=== PATIENT | female | born 1980 | race American Indian/Alaskan Native ===

== ENCOUNTER 2020-01-14 13:19 | Emergency (ER) | payer SELFPAY ==
[2020-01-14 13:58] VITALS: BP 116/72
[2020-01-14] MEDS ORDERED: KETOROLAC 30 MG/1 ML INJ IM ONE (16:38)
[2020-01-14] MEDS ORDERED: dexAMETHasone 4 MG/ML VIAL IM ONE (16:38)
--- NOTE | 2020-01-14 17:17 | Emergency Department Report ---
ED Back Pain/Injury HPI - General Chief Complaint: Extremity Injury, Lower Stated Complaint: RT ANKLE/BACK PAIN Time Seen by Provider: 01/14/20 15:46 Source: patient Limitations: No Limitations - History of Present Illness Initial Comments: Patient is a 39-year-old female presents emergency room with complaints of lower back pain that began 2 days ago. 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 She denies any fall or injury. She denies any fever, vomiting, urinary symptoms, numbness, weakness, bowel or bladder incontinence. She states that she is also been having some right ankle pain for a few days but denies any fall or injury, she states that she was diagnosed with arthritis. She denies any other past medical history. No allergies to medications. Last menstrual cycle 2 weeks ago. - Related Data Previous Rx's Medication Instructions Recorded Last Taken Type Menthol/Camphor [[place] 1 applicatio TP BID #8 oint...g. 01/14/20 Unknown Rx Ointment] Naproxen [EC-Naprosyn] 500 mg PO BID PRN #14 tablet. 01/14/20 Unknown Rx methOCARBAMOL [Robaxin TAB] 500 mg PO BID PRN #14 tab 01/14/20 Unknown Rx Allergies Allergy/AdvReac Type Severity Reaction Status Date / Time No Known Allergies Allergy Unverified 01/14/20 13:58 ED Review of Systems ROS: Stated complaint: RT ANKLE/BACK PAIN Other details as noted in HPI Comment: All other systems reviewed and negative ED Past Medical Hx - Past Medical History Previous Medical History?: No - Surgical History Past Surgical History?: Yes Hx Appendectomy: Yes Additional Surgical History: x 4 - Social History Smoking Status: Current Every Day Smoker Substance Use Type: Alcohol - Medications Home Medications: Home Medications Medication Instructions Recorded Confirmed Last Taken Type Menthol/Camphor [[place] 1 applicatio TP BID #8 oint...g. 01/14/20 Unknown Rx Ointment] Naproxen [EC-Naprosyn] 500 mg PO BID PRN #14 tablet. 01/14/20 Unknown Rx methOCARBAMOL [Robaxin TAB] 500 mg PO BID PRN #14 tab 01/14/20 Unknown Rx ED Physical Exam - General Limitations: No Limitations General appearance: alert, in no apparent distress - Head Head exam: Present: atraumatic, normocephalic - Eye Eye exam: Present: normal appearance - ENT ENT exam: Present: mucous membranes moist - Neck Neck exam: Present: normal inspection, full ROM. Absent: tenderness - Respiratory Respiratory exam: Present: normal lung sounds bilaterally. Absent: respiratory distress, wheezes, rales, rhonchi, stridor, chest wall tenderness, accessory muscle use, decreased breath sounds, prolonged expiratory - Cardiovascular Cardiovascular Exam: Present: regular rate, normal rhythm, normal heart sounds. Absent: systolic murmur, diastolic murmur, rubs, gallop - Extremities Exam Extremities exam: Present: other (mild right medial ankle ttp, no edema, no erythema, no increased warmth, no skin changes, FROM of the right ankle, foot, and toes, neurovascularly intact) - Back Exam Back exam: Present: normal inspection, full ROM, paraspinal tenderness (bilateral paraspinal lumbar muscular ttp, no midline C-spine, T-spine or L- spine ttp, no step offs, no deformities). Absent: vertebral tenderness - Neurological Exam Neurological exam: Present: alert, oriented X3, CN II-XII intact, normal gait. Absent: motor sensory deficit - Psychiatric Psychiatric exam: Present: normal affect, normal mood - Skin Skin exam: Present: warm, dry, intact ED Course Vital Signs 01/14/20 13:52 Temperature 97.9 F Pulse Rate 99 H Respiratory 18 Rate Blood Pressure 116/72 O2 Sat by Pulse 100 Oximetry ED Medical Decision Making - Medical Decision Making Patient is a 39-year-old female presents emergency room with complaints of lower back pain that began 2 days ago. 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 She denies any fall or injury. She denies any fever, vomiting, urinary symptoms, numbness, weakness, bowel or bladder incontinence. She states that she is also been having some right ankle pain for a few days but denies any fall or injury, she states that she was diagnosed with arthritis. She denies any other past medical history. No allergies to medications. Last menstrual cycle 2 weeks ago. VSS. on exam: bilateral paraspinal lumbar muscular ttp, no midline C-spine, T-spine or L-spine ttp, no step offs, no deformities, mild right medial ankle ttp, no edema, no erythema, no increased warmth, no skin changes, FROM of the right ankle, foot, and toes, neurovascularly intact. Patient given dexamethasone and Toradol IM while in the emergency department and symptoms improved and she was feeling better and ready to go home. Symptoms likely related to low back strain as patient does heavy lifting at her job. She has no red flag warning signs of back pain, no trauma, no unexplained weight loss, no neuro deficits, age is not greater than 50, no fever, no IV drug use, no steroid use, no history of cancer. Ankle pain could be related to arthritis versus standing on her legs all day long. She has no clinical signs of septic joint, no signs of gout, no clinical signs of DVT, she has had no injury. Patient given prescription for naproxen, Robaxin, [place] balm ointment. Advised patient to please use medication as prescribed. Do not drive, work, or operate heavy machinery while taking muscle relaxer (Robaxin). May use ice pack, heating pad, rest, Epson salt bath, elevation of the leg. May wear orthopedic inserts inside your shoes. Follow-up with a primary care doctor for reexamination. Return to emergency room for any new or worsening symptoms. - Differential Diagnosis strain, sprain, fx, dislocation, bulging disc, DDD, arthritis, sciatica Critical care attestation.: If time is entered above; I have spent that time in minutes in the direct care of this critically ill patient, excluding procedure time. ED Disposition Clinical Impression: Low back strain Qualifiers: Encounter type: initial encounter Qualified Code(s): S39.012A - Strain of muscle, fascia and tendon of lower back, initial encounter Right ankle pain Qualifiers: Chronicity: acute Qualified Code(s): M25.571 - Pain in right ankle and joints of right foot Disposition: DC-01 TO HOME OR SELFCARE Is pt being admited?: No Does the pt Need Aspirin: No Condition: Stable Instructions: Muscle Strain (ED), Arthralgia (ED) Additional Instructions: please use medication as prescribed. Do not drive, work, or operate heavy machinery while taking muscle relaxer (Robaxin). May use ice pack, heating pad, rest, Epson salt bath, elevation of the leg. May wear orthopedic inserts inside your shoes. Follow-up with a primary care doctor for reexamination. Return to emergency room for any new or worsening symptoms. Prescriptions: Naproxen [EC-Naprosyn] 500 mg PO BID PRN #14 tablet.dr PORTERN Reason: pain methOCARBAMOL [Robaxin TAB] 500 mg PO BID PRN #14 tab PRN Reason: pain Menthol/Camphor [[place] Ointment] 1 applicatio TP BID #8 oint...g. Referrals: TRISTON WELDON MD [Staff Physician] - 2-[address] [facility] [Provider Group] - 2-3 Days [facility], [LAB/CONTRACT] - 2-3 Days Time of Disposition: 17:18 Print Language: UZBEK
== END 2020-01-14 16:41 | disposition home or self-care (01) ==
LOC: ED 13:19
DX: S39.012A Strain of muscle, fascia and tendon of lower back, initial encounter (principal); M25.571 Pain in right ankle and joints of right foot; F17.200 Nicotine dependence, unspecified, uncomplicated; Z90.49 Acquired absence of other specified parts of digestive tract; Z79.899 Other long term (current) drug therapy; Z98.890 Other specified postprocedural states; X58.XXXA Exposure to other specified factors, initial encounter; Y93.89 Activity, other specified; Y92.89 Other specified places as the place of occurrence of the external cause; Y99.8 Other external cause status
CPT/HCPCS: 96372; 99282; J1100; J1885

== ENCOUNTER 2020-02-17 15:06 | Emergency (ER) | payer OTHER ==
[2020-02-17 15:11] VITALS: BP 112/75
--- NOTE | 2020-02-17 16:11 | Emergency Department Report ---
ED General Adult HPI - General Chief complaint: Neck Pain/Injury Stated complaint: LT SHOULDER/NECK PAIN Time Seen by Provider: 02/17/20 15:36 Source: patient Mode of arrival: Ambulatory Limitations: No Limitations - History of Present Illness Initial comments: Patient is a 39-year-old female presents emergency room with complaints of left- sided neck pain and left-sided shoulder pain that began 2 to 3 days ago. 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 She denies any fall or injury. She denies any numbness, weakness, bowel or bladder incontinence, headache, nausea, vomiting, diarrhea, fever, vision changes, CP, SOB. No past medical history. No allergies to medications. she is requesting an excuse for work. - Related Data Previous Rx's Medication Instructions Recorded Last Taken Type Menthol/Camphor [[place] 1 applicatio TP BID #8 oint...g. 01/14/20 Unknown Rx Ointment] Naproxen [EC-Naprosyn] 500 mg PO BID PRN #14 tablet. 01/14/20 Unknown Rx methOCARBAMOL [Robaxin TAB] 500 mg PO BID PRN #14 tab 01/14/20 Unknown Rx Menthol/Camphor [[place] 1 applicatio TP BID #8 oint...g. 02/17/20 Unknown Rx Ointment] Naproxen [EC-Naproxen] 375 mg PO BID PRN #14 tablet. 02/17/20 Unknown Rx methOCARBAMOL [Robaxin TAB] 500 mg PO BID PRN #14 tab 02/17/20 Unknown Rx Allergies Allergy/AdvReac Type Severity Reaction Status Date / Time No Known Allergies Allergy Unverified 01/14/20 13:58 ED Review of Systems ROS: Stated complaint: LT SHOULDER/NECK PAIN Other details as noted in HPI Comment: All other systems reviewed and negative ED Past Medical Hx - Past Medical History Previous Medical History?: No - Surgical History Past Surgical History?: Yes Hx Appendectomy: Yes Additional Surgical History: x 4 - Social History Smoking Status: Never Smoker Substance Use Type: None - Medications Home Medications: Home Medications Medication Instructions Recorded Confirmed Last Taken Type Menthol/Camphor [[place] 1 applicatio TP BID #8 oint...g. 01/14/20 Unknown Rx Ointment] Naproxen [EC-Naprosyn] 500 mg PO BID PRN #14 tablet. 01/14/20 Unknown Rx methOCARBAMOL [Robaxin TAB] 500 mg PO BID PRN #14 tab 01/14/20 Unknown Rx Menthol/Camphor [[place] 1 applicatio TP BID #8 oint...g. 02/17/20 Unknown Rx Ointment] Naproxen [EC-Naproxen] 375 mg PO BID PRN #14 tablet. 02/17/20 Unknown Rx methOCARBAMOL [Robaxin TAB] 500 mg PO BID PRN #14 tab 02/17/20 Unknown Rx ED Physical Exam - General Limitations: No Limitations General appearance: alert, in no apparent distress - Head Head exam: Present: atraumatic, normocephalic - Eye Eye exam: Present: normal appearance - ENT ENT exam: Present: mucous membranes moist - Neck Neck exam: Present: normal inspection, full ROM. Absent: tenderness - Respiratory Respiratory exam: Present: normal lung sounds bilaterally. Absent: respiratory distress, wheezes, rales, rhonchi, stridor, chest wall tenderness, accessory muscle use, decreased breath sounds, prolonged expiratory - Cardiovascular Cardiovascular Exam: Present: regular rate, normal rhythm, normal heart sounds. Absent: systolic murmur, diastolic murmur, rubs, gallop - Extremities Exam Extremities exam: Present: other (ttp to the left trapezius muscle, no deformity, no crepitus, no ecchymosis, no bony ttp of the LUE, no sulcus sign, no clavicular ttp, clavicles are equal, neurovascularly intact) - Back Exam Back exam: Present: normal inspection, full ROM. Absent: paraspinal tenderness, vertebral tenderness - Neurological Exam Neurological exam: Present: alert, oriented X3, CN II-XII intact, normal gait. Absent: motor sensory deficit - Psychiatric Psychiatric exam: Present: normal affect, normal mood - Skin Skin exam: Present: warm, dry, intact ED Course Vital Signs 02/17/20 02/17/20 15:10 16:22 Temperature 99.1 F Pulse Rate 94 H 89 Respiratory 16 18 Rate Blood Pressure 112/75 O2 Sat by Pulse 100 99 Oximetry ED Medical Decision Making - Medical Decision Making Patient is a 39-year-old female presents emergency room with complaints of left- sided neck pain and left-sided shoulder pain that began 2 to 3 days ago. 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 She denies any fall or injury. She denies any numbness, weakness, bowel or bladder incontinence, headache, nausea, vomiting, diarrhea, fever, vision changes, CP, SOB. No past medical history. No all ergies to medications. she is requesting an excuse for work. vitals are normal. on exam: ttp to the left trapezius muscle, no deformity, no crepitus, no ecchymosis, no bony ttp of the LUE, no sulcus sign, no clavicular ttp, clavicles are equal, neurovascularly intact. Examination appears consistent with mild trapezius strain likely secondary to patient's heavy lifting. She has had no trauma, she has no bony tenderness, no neuro deficits. Patient given prescription for naproxen, Robaxin, [place] balm ointment. Advised patient Please use medication as prescribed. May use ice pack, heating pad, rest, Epson salt bath. Follow-up with your primary care doctor. Return to emergency room for any new or worsening symptoms. Critical care attestation.: If time is entered above; I have spent that time in minutes in the direct care of this critically ill patient, excluding procedure time. ED Disposition Clinical Impression: Trapezius muscle strain Qualifiers: Encounter type: initial encounter Laterality: left Qualified Code(s): S46.812A - Strain of other muscles, fascia and tendons at shoulder and upper arm level, left arm, initial encounter Disposition: DC- TO HOME OR SELFCARE Is pt being admited?: No Does the pt Need Aspirin: No Condition: Stable Instructions: Muscle Strain (ED) Additional Instructions: Please use medication as prescribed. May use ice pack, heating pad, rest, Epson salt bath. Follow-up with your primary care doctor. Return to emergency room for any new or worsening symptoms. Prescriptions: Naproxen [EC-Naproxen] 375 mg PO BID PRN #14 tablet.dr GRACIA Reason: pain methOCARBAMOL [Robaxin TAB] 500 mg PO BID PRN #14 tab PRN Reason: pain Menthol/Camphor [[place] Ointment] 1 applicatio TP BID #8 oint...g. Referrals: TRISTON WELDON MD [Staff Physician] - 2-3 Days [facility] [Provider Group] - 2-3 Days Forms: Work/School Release Form(ED) Time of Disposition: 16:09 Print Language: SAUDI ARABIAN
== END 2020-02-17 16:22 | disposition home or self-care (01) ==
LOC: ED 15:06
DX: S46.812A Strain of other muscles, fascia and tendons at shoulder and upper arm level, left arm, initial encounter (principal); Z79.899 Other long term (current) drug therapy; Z90.49 Acquired absence of other specified parts of digestive tract; Z98.890 Other specified postprocedural states; X50.0XXA Overexertion from strenuous movement or load, initial encounter; Y93.89 Activity, other specified; Y92.89 Other specified places as the place of occurrence of the external cause; Y99.0 Civilian activity done for income or pay
CPT/HCPCS: 99282

== ENCOUNTER 2020-03-12 16:15 | Emergency (ER) | payer OTHER ==
[2020-03-12 16:43] VITALS: BP 126/82
[2020-03-12] MEDS ORDERED: dexAMETHasone 20 MG/5 ML VIAL IV ONE (17:27)
[2020-03-12] MEDS ORDERED: NAPROXEN 500 MG TAB PO ONE (17:27)
--- NOTE | 2020-03-12 17:29 | XRay Report ---
RIGHT HAND 3 VIEW(S) INDICATION / CLINICAL INFORMATION: pain and swelling, no injury COMPARISON: None available. FINDINGS: BONES / JOINT(S): No acute fracture or subluxation. No significant arthritis. SOFT TISSUES: No significant abnormality. ADDITIONAL FINDINGS: None. IMPRESSION: No acute osseous abnormality. Signer Name: Ruddy Jolly MD Signed: 03/12/2020 5:24 PM Workstation Name: [id number]
--- NOTE | 2020-03-12 17:38 | Emergency Department Report ---
ED General Adult HPI - General Chief complaint: Extremity Injury, Upper Stated complaint: RT HAND SWOLLEN/LT SHOULDER PAIN Time Seen by Provider: 03/12/20 17:26 Source: patient Mode of arrival: Ambulatory Limitations: No Limitations - History of Present Illness Initial comments: 39-year-old -Mosoth[place] female patient presents with complaints of sudden onset of right hand pain and swelling x 3 days. She denies any trauma to the hand, fever/chills/sweats, history of diabetes, history of IV drug use, numbness/tingling/weakness in her hand, or history of gout. She rates her current pain as a 9/10 in severity and states it worsens with touch and movement. - Related Data Previous Rx's Medication Instructions Recorded Last Taken Type Menthol/Camphor [[place] 1 applicatio TP BID #8 oint...g. 01/14/20 Unknown Rx Ointment] Naproxen [EC-Naprosyn] 500 mg PO BID PRN #14 tablet. 01/14/20 Unknown Rx methOCARBAMOL [Robaxin TAB] 500 mg PO BID PRN #14 tab 01/14/20 Unknown Rx Menthol/Camphor [[place] 1 applicatio TP BID #8 oint...g. 02/17/20 Unknown Rx Ointment] Naproxen [EC-Naproxen] 375 mg PO BID PRN #14 tablet. 02/17/20 Unknown Rx methOCARBAMOL [Robaxin TAB] 500 mg PO BID PRN #14 tab 02/17/20 Unknown Rx Naproxen 500 mg PO BID PRN 7 Days #14 tablet 03/12/20 Unknown Rx Prednisone [predniSONE 10 mg 10 mg PO .TAPER #1 tab.ds.pk 03/12/20 Unknown Rx (6-Day Pack, 21 Tabs)] Allergies Allergy/AdvReac Type Severity Reaction Status Date / Time No Known Allergies Allergy Verified 03/12/20 17:30 ED Review of Systems ROS: Stated complaint: RT HAND SWOLLEN/LT SHOULDER PAIN Other details as noted in HPI Constitutional: denies: chills, diaphoresis, fever, malaise, weakness Endocrine: denies: excessive sweating Gastrointestinal: denies: nausea, vomiting Musculoskeletal: joint swelling, arthralgia Skin: denies: rash, lesions, change in color Neurological: denies: weakness, numbness, paresthesias ED Past Medical Hx - Past Medical History Previous Medical History?: No - Surgical History Hx Appendectomy: Yes Additional Surgical History: x 4 - Social History Smoking Status: Never Smoker Substance Use Type: None - Medications Home Medications: Home Medications Medication Instructions Recorded Confirmed Last Taken Type Menthol/Camphor [[place] 1 applicatio TP BID #8 oint...g. 01/14/20 Unknown Rx Ointment] Naproxen [EC-Naprosyn] 500 mg PO BID PRN #14 tablet. 01/14/20 Unknown Rx methOCARBAMOL [Robaxin TAB] 500 mg PO BID PRN #14 tab 01/14/20 Unknown Rx Menthol/Camphor [[place] 1 applicatio TP BID #8 oint...g. 02/17/20 Unknown Rx Ointment] Naproxen [EC-Naproxen] 375 mg PO BID PRN #14 tablet. 02/17/20 Unknown Rx methOCARBAMOL [Robaxin TAB] 500 mg PO BID PRN #14 tab 02/17/20 Unknown Rx Naproxen 500 mg PO BID PRN 7 Days #14 tablet 03/12/20 Unknown Rx Prednisone [predniSONE 10 mg 10 mg PO .TAPER #1 tab.ds.pk 03/12/20 Unknown Rx (6-Day Pack, 21 Tabs)] ED Physical Exam - General Limitations: No Limitations General appearance: alert, in no apparent distress - Head Head exam: Present: atraumatic, normocephalic - Eye Eye exam: Present: normal appearance. Absent: scleral icterus - Neck Neck exam: Present: normal inspection - Respiratory Respiratory exam: Absent: respiratory distress - Cardiovascular Cardiovascular Exam: Present: regular rate, normal rhythm - Extremities Exam Extremities exam: Present: other (Right wrist and lower hand tenderness to palpation noted with minimal swelling; normal perfusion and sensation and range of motion of the hand and wrist noted) - Neurological Exam Neurological exam: Present: alert, oriented X3, normal gait. Absent: motor sensory deficit - Psychiatric Psychiatric exam: Present: normal affect, normal mood - Skin Skin exam: Present: warm, dry, intact, normal color. Absent: rash, erythema ED Course Vital Signs 03/12/20 16:42 Temperature 98.3 F Pulse Rate 109 H Respiratory 18 Rate Blood Pressure 126/82 O2 Sat by Pulse 99 Oximetry ED Medical Decision Making - Lab Data Result diagrams: 03/12/20 17:32 03/12/20 17:32 Lab Results 03/12/20 03/12/20 Range/Units 17:32 17:32 WBC 8.1 (4.5-11.0) K/mm3 RBC 4.18 (3.65-5.03) M/mm3 Hgb 8.9 L (10.1-14.3) gm/dl Hct 28.4 L (30.3-42.9) % MCV 68 L (79-97) fl MCH 21 L (28-32) pg MCHC 31 (30-34) % RDW 21.8 H (13.2-15.2) % Plt Count 434 (140-440) K/mm3 Lymph % (Auto) 27.2 (13.4-35.0) % [place] % (Auto) 7.4 H (0.0-7.3) % Eos % (Auto) 3.9 (0.0-4.3) % Baso % (Auto) 0.3 (0.0-1.8) % Lymph # (Auto) 2.2 (1.2-5.4) K/mm3 [place] # (Auto) 0.6 (0.0-0.8) K/mm3 Eos # (Auto) 0.3 (0.0-0.4) K/mm3 Baso # (Auto) 0.0 (0.0-0.1) K/mm3 Seg Neutrophils % 61.2 (40.0-70.0) % Seg Neutrophils # 5.0 (1.8-7.7) K/mm3 Sodium 141 (137-145) mmol/L Potassium 3.4 L (3.6-5.0) mmol/L Chloride 105.3 (98-107) mmol/L Carbon Dioxide 25 (22-30) mmol/L Anion Gap 14 mmol/L BUN 5 L (7-17) mg/dL Creatinine 0.6 (0.6-1.2) mg/dL Estimated GFR > 60 ml/min BUN/Creatinine Ratio 8 % Glucose 91 (65-100) mg/dL Uric Acid 4.4 (3.5-7.6) mg/dL Calcium 9.1 (8.4-10.2) mg/dL Total Bilirubin 0.30 (0.1-1.2) mg/dL AST 14 (5-40) units/L ALT 7 (7-56) units/L Alkaline Phosphatase 79 (35-129) units/L Total Protein 7.6 (6.3-8.2) g/dL Albumin 3.6 L (3.9-5) g/dL Albumin/Globulin Ratio 0.9 % - Radiology Data Radiology results: report reviewed RIGHT HAND 3 VIEW(S) INDICATION / CLINICAL INFORMATION: pain and swelling, no injury COMPARISON: None available. FINDINGS: BONES / JOINT(S): No acute fracture or subluxation. No significant arthritis. SOFT TISSUES: No significant abnormality. ADDITIONAL FINDINGS: None. IMPRESSION: No acute osseous abnormality. - Medical Decision Making 39-year-old -Mos[place] female patient presents with complaints of sudden onset of right hand pain and swelling x 3 days. She denies any trauma to the hand, fever/chills/sweats, history of diabetes, history of IV drug use, numbness/tingling/weakness in her hand, or history of gout. She rates her current pain as a 9/10 in severity and states it worsens with touch and movement . No abnormalities noted on x-ray or labs. Patient is afebrile and nontachycardic on repeat vitals. Will treat for possible gout. Patient given naproxen and Decadron. She is to DC home with naproxen and prednisone Dosepak. Recommend follow-up with PCP in 3 days. She is nontoxic-appearing and stable for discharge home. Strict return precautions were discussed in detail with patient who verbalized understanding peer Critical care attestation.: If time is entered above; I have spent that time in minutes in the direct care of this critically ill patient, excluding procedure time. ED Disposition Clinical Impression: Acute pain of right wrist Disposition: DC-01 TO HOME OR SELFCARE Is pt being admited?: No Condition: Stable Instructions: Low-Purine Eating Plan Additional Instructions: gout? Gout is a form of arthritis. It can cause pain and swelling in the joints. At first, it tends to affect only 1 joint most frequently the big toe. It happens in people who have too much uric acid in the blood. Uric acid is a chemical that is produced when the body breaks down certain foods. Uric acid can form sharp needle-like crystals that build up in the joints and cause pain. Uric acid crystals can also form inside the tubes that carry urine from the kidneys to the bladder. These crystals can turn into "kidney stones" that can cause pain and problems with the flow of urine. What are the symptoms of gout? People with gout get sudden "flares" or attacks of severe pain, most often the big toe, ankle, or knee. Often the joint also turns red and swells. Usually, only 1 joint is affected, but some people have pain in more than 1 joint. Gout flares tend to happen more often during the night. The pain from gout can be extreme. The pain and swelling are worst at the beginning of a gout flare. The symptoms then get better within a few days to weeks. It is not clear how the body "turns off" a gout flare. Is there a test for gout? Yes. To test you for gout, your doctor or nurse can take a sample of fluid from the joint that is in pain. If he or she finds typical gout crystals in the fl uid, then you have gout. Even without checking fluid from a joint, the doctor or nurse might still strongly suspect gout if: ?You have had pain and swelling in 1 joint, especially the joint at the base of the big toe ?Your symptoms completely go away between flares, at least when you first start having them ?Your blood tests show high levels of uric acid How is gout treated? There are a few medicines that can reduce the pain and swelling caused by gout. When you find one that works for you, make sure to keep it on hand all the time. That way you can take it as soon you feel a flare starting. Gout medicines work best if you take them as soon as symptoms start. The medicines used to treat gout flares include: ?NSAIDs This is a large group of medicines that includes ibuprofen (sample brand names: Advil, Motrin) and indomethacin (brand name: Indocin). NSAIDs might not be safe for people with kidney or liver disease, or for people who have bleeding problems. ?Colchicine This medicine helps with gout but it can also cause diarrhea, nausea, vomiting, and stomach pain. ?Steroids Steroids can reduce swelling and pain. These steroids are not the kind that athletes take to build up muscle. Steroids can be taken as pills or as shots. Can I do anything on my own to prevent gout flares? Yes. If you are overweight, losing weight can help relieve gout. It's not clear that following a specific diet plan will help with gout symptoms. But eating a balanced diet can help improve your overall health. It can also help you lose weight, if you are overweight. In general, a healthy diet includes plenty of fruits, vegetables, whole grains, and low-fat dairy products. It's also important to drink plenty of water, and try not to get dehydrated. You should limit sugary drinks and alcohol, which can make gout flares worse. Some people with gout also have other health problems, such as heart disease, high blood pressure, kidney disease, or obesity. If you have any of these issue s, it's important to work with your doctor to manage them. This can help improve your overall health and might also help with your gout. Prescriptions: Naproxen 500 mg PO BID PRN 7 Days #14 tablet PRN Reason: pain Prednisone [predniSONE 10 mg (6-Day Pack, 21 Tabs)] 10 mg PO .TAPER #1 tab.larissa Referrals: [facility] [Provider Group] - 3-5 Days
[2020-03-12 17:54] LABS: Basophils % (Auto) 0.3 % (0.0-1.8); Eosinophils # (Auto) 0.3 K/mm3 (0.0-0.4); Eosinophils % (Auto) 3.9 % (0.0-4.3); Hematocrit 28.4 % (30.3-42.9); Hemoglobin 8.9 gm/dl (10.1-14.3); Lymphocytes # (Auto) 2.2 K/mm3 (1.2-5.4); Lymphocytes % (Auto) 27.2 % (13.4-35.0); Mean Corpuscular HGB Conc 31 % (30-34); Monocytes # (Auto) 0.6 K/mm3 (0.0-0.8); Monocytes % (Auto) 7.4 % (0.0-7.3); Platelet Count 434 K/mm3 (140-440); Red Blood Count 4.18 M/mm3 (3.65-5.03)
[2020-03-12 18:06] LABS: Mean Corpuscular Volume 68 fl (79-97); Red Cell Distribution Width 21.8 % (13.2-15.2)
[2020-03-12 18:13] LABS: Alanine Aminotransferase 7 units/L (7-56); Albumin 3.6 g/dL (3.9-5); Blood Urea Nitrogen 5 mg/dL (7-17); Calcium 9.1 mg/dL (8.4-10.2); Hemolysis Index 3; Uric Acid 4.4 mg/dL (3.5-7.6)
[2020-03-12 18:20] LABS: BUN/Creatinine Ratio 8
== END 2020-03-12 20:00 | disposition home or self-care (01) ==
LOC: ED 16:15
DX: M25.531 Pain in right wrist (principal)
CPT/HCPCS: 36415; 73130; 80053; 84550; 85025; 96374; 99284; J1100

== ENCOUNTER 2020-07-30 18:51 | Emergency (ER) | payer MEDICAID, OTHER ==
[2020-07-30 19:04] VITALS: BP 135/76
[2020-07-30] MEDS ORDERED: ALBUTEROL 2.5 MG/3 ML NEBU IH ONE (23:48)
--- NOTE | 2020-07-31 00:23 | XRay Report ---
CHEST PA AND LATERAL VIEWS INDICATION: sob. COMPARISON: None. FINDINGS: Support devices: None. Heart: Within normal limits. Lungs/Pleura: No acute pulmonary or pleural findings. IMPRESSION: 1. No acute findings. Signer Name: Rodney Mariscal MD Signed: 07/31/2020 12:18 AM Workstation Name: [id number]
[2020-07-31 00:44] LABS: Basophils % (Auto) 0.5 % (0.0-1.8); Eosinophils # (Auto) 0.1 K/mm3 (0.0-0.4); Eosinophils % (Auto) 1.1 % (0.0-4.3); Hematocrit 25.1 % (30.3-42.9); Lymphocytes # (Auto) 1.4 K/mm3 (1.2-5.4); Lymphocytes % (Auto) 17.9 % (13.4-35.0); Mean Corpuscular HGB Conc 32 % (30-34); Monocytes # (Auto) 0.7 K/mm3 (0.0-0.8); Monocytes % (Auto) 8.7 % (0.0-7.3); Platelet Count 370 K/mm3 (140-440); Red Blood Count 3.85 M/mm3 (3.65-5.03)
[2020-07-31 00:47] LABS: Mean Corpuscular Volume 65 fl (79-97); Red Cell Distribution Width 21.9 % (13.2-15.2)
[2020-07-31 00:59] LABS: Blood Urea Nitrogen 5 mg/dL (7-17); Calcium 8.6 mg/dL (8.4-10.2); Hemolysis Index 0
[2020-07-31 01:06] LABS: BUN/Creatinine Ratio 10
--- NOTE | 2020-07-31 01:44 | Emergency Department Report ---
- General Chief Complaint: Dyspnea/Respdistress Stated Complaint: SOB PUI?: Yes Time Seen by Provider: 07/30/20 23:32 Source: patient Mode of arrival: Ambulatory Limitations: No Limitations - History of Present Illness Initial Comments: 39-year-old -Micronesian female smoker who has had positive contact of the coronavirus via her child was diagnosed 1 day ago with asthma department complaining of coryza, cough, congestion, shortness of breath with mucus production.. No no diarrhea but has had a few vomiting episodes. Reports no palpitations, no headache no blurred vision Quality: aching Consistency: constant Improves With: nothing Worsens With: nothing Associated Symptoms: chills, rhinorrhea, nasal congestion, cough. denies: shortness of breath, abdominal pain, confusion, right sweats, ear pain - Related Data Previous Rx's Medication Instructions Recorded Last Taken Type Menthol/Camphor [[place] 1 applicatio TP BID #8 oint...g. 01/14/20 Unknown Rx Ointment] Naproxen [EC-Naprosyn] 500 mg PO BID PRN #14 tablet. 01/14/20 Unknown Rx methOCARBAMOL [Robaxin TAB] 500 mg PO BID PRN #14 tab 01/14/20 Unknown Rx Menthol/Camphor [[place] 1 applicatio TP BID #8 oint...g. 02/17/20 Unknown Rx Ointment] Naproxen [EC-Naproxen] 375 mg PO BID PRN #14 tablet. 02/17/20 Unknown Rx methOCARBAMOL [Robaxin TAB] 500 mg PO BID PRN #14 tab 02/17/20 Unknown Rx Acetaminophen/Codeine [Tylenol 1 tab PO Q8H PRN #8 tab 03/12/20 Unknown Rx /Codeine # 3 tab] Naproxen 500 mg PO BID PRN 7 Days #14 tablet 03/12/20 Unknown Rx Prednisone [predniSONE 10 mg 10 mg PO .TAPER #1 tab.ds.pk 03/12/20 Unknown Rx (6-Day Pack, 21 Tabs)] methOCARBAMOL [Robaxin TAB] 1,000 mg PO Q8H PRN #20 tablet 03/12/20 Unknown Rx Albuterol Mdi (or & Nicu Only) 1 puff IH Q4-6H PRN #1 inha 07/31/20 Unknown Rx [ProAir HFA Inhaler] Benzonatate [Tessalon Perles] 100 mg PO Q8HR #20 capsule 07/31/20 Unknown Rx predniSONE [Deltasone] 20 mg PO QDAY #5 tab 07/31/20 Unknown Rx Allergies Allergy/AdvReac Type Severity Reaction Status Date / Time No Known Allergies Allergy Verified 03/12/20 17:30 ED Review of Systems ROS: Stated complaint: SOB Other details as noted in HPI Comment: All other systems reviewed and negative ED Past Medical Hx - Past Medical History Previous Medical History?: No - Surgical History Past Surgical History?: Yes Hx Appendectomy: Yes Additional Surgical History: x 4 - Social History Smoking Status: Never Smoker Substance Use Type: None - Medications Home Medications: Home Medications Medication Instructions Recorded Confirmed Last Taken Type Menthol/Camphor [[place] 1 applicatio TP BID #8 oint...g. 01/14/20 Unknown Rx Ointment] Naproxen [EC-Naprosyn] 500 mg PO BID PRN #14 tablet. 01/14/20 Unknown Rx methOCARBAMOL [Robaxin TAB] 500 mg PO BID PRN #14 tab 01/14/20 Unknown Rx Menthol/Camphor [[place] 1 applicatio TP BID #8 oint...g. 02/17/20 Unknown Rx Ointment] Naproxen [EC-Naproxen] 375 mg PO BID PRN #14 tablet. 02/17/20 Unknown Rx methOCARBAMOL [Robaxin TAB] 500 mg PO BID PRN #14 tab 02/17/20 Unknown Rx Acetaminophen/Codeine [Tylenol 1 tab PO Q8H PRN #8 tab 03/12/20 Unknown Rx /Codeine # 3 tab] Naproxen 500 mg PO BID PRN 7 Days #14 tablet 03/12/20 Unknown Rx Prednisone [predniSONE 10 mg 10 mg PO .TAPER #1 tab.ds.pk 03/12/20 Unknown Rx (6-Day Pack, 21 Tabs)] methOCARBAMOL [Robaxin TAB] 1,000 mg PO Q8H PRN #20 tablet 03/12/20 Unknown Rx Albuterol Mdi (or & Nicu Only) 1 puff IH Q4-6H PRN #1 inha 07/31/20 Unknown Rx [ProAir HFA Inhaler] Benzonatate [Tessalon Perles] 100 mg PO Q8HR #20 capsule 07/31/20 Unknown Rx predniSONE [Deltasone] 20 mg PO QDAY #5 tab 07/31/20 Unknown Rx ED Physical Exam - General Limitations: No Limitations General appearance: alert, in no apparent distress - Head Head exam: Present: atraumatic, normocephalic - Eye Eye exam: Present: normal appearance, PERRL - ENT ENT exam: Present: mucous membranes moist - Neck Neck exam: Present: normal inspection - Respiratory Respiratory exam: Present: normal lung sounds bilaterally, rhonchi. Absent: respiratory distress - Cardiovascular Cardiovascular Exam: Present: regular rate, normal rhythm. Absent: systolic murmur, diastolic murmur, rubs, gallop - GI/Abdominal GI/Abdominal exam: Present: soft, normal bowel sounds - Extremities Exam Extremities exam: Present: normal inspection, full ROM, normal capillary refill - Back Exam Back exam: Present: normal inspection, full ROM - Neurological Exam Neurological exam: Present: alert, oriented X3, CN II-XII intact - Psychiatric Psychiatric exam: Present: normal affect, normal mood - Skin Skin exam: Present: warm, dry, intact, normal color. Absent: rash ED Course Vital Signs 07/30/20 19:01 Temperature 99.0 F Pulse Rate 96 H Respiratory 20 Rate Blood Pressure 135/76 [Right] O2 Sat by Pulse 100 Oximetry ED Medical Decision Making - Lab Data Result diagrams: 07/30/20 23:54 07/30/20 23:54 - Radiology Data Radiology results: report reviewed [address] [place] [id number] XRay Report Signed Patient: DAVID NEWELL MR#: [id number] : 1980 Acct:[id number] Age/Sex: 39 / F ADM Date: 07/30/20 Loc: ED Attending Dr: Ordering Physician: SPRING MARTINEZ Date of Service: 07/30/20 Procedure(s): XR chest routine 2V Accession Number(s): [id number] cc: SPRING MARTINEZ Fluoro Time In Minutes: CHEST PA AND LATERAL VIEWS INDICATION: sob. COMPARISON: None. FINDINGS: Support devices: None. Heart: Within normal limits. Lungs/Pleura: No acute pulmonary or pleural findings. IMPRESSION: 1. No acute findings. Signer Name: Rodney Mariscal MD Signed: 07/31/2020 12:18 AM Workstation Name: [id number] Transcribed By: MONTEZ Dictated By: Rodney Mariscal MD Electronically Authenticated By: Rodney Mariscal MD Signed Date/Time: 07/31/2017 DD/ TD/TT: Print - Medical Decision Making This patient presents with acute cough, most consistent with bronchitis. Differential diagnosis includes bronchitis, coronavirus,. Presentation not consistent with acute bacterial pneumonia, influenza, asthma, transient airway hyperresponsiveness. Presentation not consistent with chronic causes of cough (including GERD, asthma, postnasal discharge, medication side effect, CHF, lung cancer or mass). This patient presents to the emergency department with fever and lower respiratory symptoms concerning for viral syndrome including flu and COVID-19. Patient has suspicion and is for COVID-19 infection. Differential diagnosis includes other viral causes of lower respiratory symptoms, pneumonia, asthma, bronchitis. Patient is well-appearing with acceptable vitals, lacks comorbidities admission and a reassuring physical examination and is safe to be discharged home nasal swab for COVID testing is recommended. Provide strict return precautions and instructions on self isolation/quarantine and anticipatory guidance. Normal CXR Plan: , supportive care, reassess Critical care attestation.: If time is entered above; I have spent that time in minutes in the direct care of this critically ill patient, excluding procedure time. ED Disposition Clinical Impression: Cough, URI (upper respiratory infection), The administrative codes within the [employer] content you are accessing may have as of 07/18/2020. Please contact your IT Dept/Help Desk and request the latest Regulatory release be installed. IT Dept/Help Desk- Please refer to our FAQ page ([email or web address]_[email or web address]) or contact [employer] Customer Support at [email or web address], Bronchitis Disposition: DC-01 TO HOME OR SELFCARE Is pt being admited?: No Does the pt Need Aspirin: No Condition: Stable Instructions: Cool Mist Vaporizer, Viral Respiratory Infection, [id number], How to Use a Metered Dose Inhaler, How to Use a Dry Powder Inhaler, [id number], Chronic Bronchitis (ED) Additional Instructions: Please follow-up with your doctor to receive COVID-19 testing Prescriptions: predniSONE [Deltasone] 20 mg PO QDAY #5 tab Albuterol Mdi (or & Nicu Only) [ProAir HFA Inhaler] 1 puff IH Q4-6H PRN #1 inha PRN Reason: Cough Benzonatate [Tessalon Perles] 100 mg PO Q8HR #20 capsule Referrals: RAFAEL SEAMAN MD [Primary Care Provider] - 3-5 Days [facility] [Provider Group] - 3-5 Days
== END 2020-07-31 02:41 | disposition home or self-care (01) ==
LOC: ED 18:51
DX: J06.9 Acute upper respiratory infection, unspecified (principal); R05 Cough; Z79.899 Other long term (current) drug therapy; Z90.49 Acquired absence of other specified parts of digestive tract; Z98.890 Other specified postprocedural states
CPT/HCPCS: 36415; 71046; 80048; 84703; 85025; 94640

== ENCOUNTER 2021-03-30 17:01 | Emergency (ER) | payer MEDICAID ==
[2021-03-30 17:10] VITALS: BP 112/74
--- NOTE | 2021-03-30 20:31 | Emergency Department Report ---
ED ENT HPI - General Chief complaint: Dental/Oral Stated complaint: RIGHT SIDE MOUTH PAIN Time Seen by Provider: 03/30/21 20:03 Source: patient Mode of arrival: Ambulatory Limitations: No Limitations - History of Present Illness Initial comments: Female presents to the ER today with complaints of dental pain to her right upper jaw. She states that she has a bad tooth, and she has been having pain off and on to the area for few months but she states that got worse in the past 2 days with associated swelling. She states that she does have Medicaid, and she does have a dentist, Medicaid will not cover portion of the visit and currently financially she is unable to cover the second portion. She reports no drooling, trismus, difficulty swallowing or difficulty breathing. Patient also complains of flareup of her eczema to her bilateral forearms with associated itching. MD complaint: tooth pain -: Gradual - Related Data Previous Rx's Medication Instructions Recorded Last Taken Type Menthol/Camphor [Maria Stein [place] 1 applicatio TP BID #8 oint...g. 01/14/20 Unknown Rx Ointment] methOCARBAMOL [Robaxin TAB] 500 mg PO BID PRN #14 tab 01/14/20 Unknown Rx Menthol/Camphor [Maria Stein [place] 1 applicatio TP BID #8 oint...g. 02/17/20 Unknown Rx Ointment] methOCARBAMOL [Robaxin TAB] 500 mg PO BID PRN #14 tab 02/17/20 Unknown Rx methOCARBAMOL [Robaxin TAB] 1,000 mg PO Q8H PRN #20 tablet 03/12/20 Unknown Rx Albuterol Mdi (or & Nicu Only) 1 puff IH Q4-6H PRN #1 inha 07/31/20 Unknown Rx [ProAir HFA Inhaler] Benzonatate [Tessalon Perles] 100 mg PO Q8HR #20 capsule 07/31/20 Unknown Rx Acetaminophen/Codeine [Tylenol 1 tab PO Q8H PRN #10 tab 03/30/21 Unknown Rx /Codeine # 3 tab] Hydrocortisone 1% [Hydrocortisone 1 applicatio TP TID #30 gram 03/30/21 Unknown Rx 1% CREAM] Ibuprofen [Motrin] 600 mg PO Q8H PRN #30 tablet 03/30/21 Unknown Rx Allergies Allergy/AdvReac Type Severity Reaction Status Date / Time No Known Allergies Allergy Verified 03/12/20 17:30 ED Dental HPI - General Chief complaint: Dental/Oral Stated complaint: RIGHT SIDE MOUTH PAIN Time Seen by Provider: 03/30/21 20:03 Source: patient Mode of arrival: Ambulatory Limitations: No Limitations - Related Data Previous Rx's Medication Instructions Recorded Last Taken Type Menthol/Camphor [Maria Stein [place] 1 applicatio TP BID #8 oint...g. 01/14/20 Unknown Rx Ointment] methOCARBAMOL [Robaxin TAB] 500 mg PO BID PRN #14 tab 01/14/20 Unknown Rx Menthol/Camphor [Maria Stein [place] 1 applicatio TP BID #8 oint...g. 02/17/20 Unknown Rx Ointment] methOCARBAMOL [Robaxin TAB] 500 mg PO BID PRN #14 tab 02/17/20 Unknown Rx methOCARBAMOL [Robaxin TAB] 1,000 mg PO Q8H PRN #20 tablet 03/12/20 Unknown Rx Albuterol Mdi (or & Nicu Only) 1 puff IH Q4-6H PRN #1 inha 07/31/20 Unknown Rx [ProAir HFA Inhaler] Benzonatate [Tessalon Perles] 100 mg PO Q8HR #20 capsule 07/31/20 Unknown Rx Acetaminophen/Codeine [Tylenol 1 tab PO Q8H PRN #10 tab 03/30/21 Unknown Rx /Codeine # 3 tab] Hydrocortisone 1% [Hydrocortisone 1 applicatio TP TID #30 gram 03/30/21 Unknown Rx 1% CREAM] Ibuprofen [Motrin] 600 mg PO Q8H PRN #30 tablet 03/30/21 Unknown Rx Allergies Allergy/AdvReac Type Severity Reaction Status Date / Time No Known Allergies Allergy Verified 03/12/20 17:30 ED Review of Systems ROS: Stated complaint: RIGHT SIDE MOUTH PAIN Other details as noted in HPI Comment: All other systems reviewed and negative Constitutional: denies: chills, fever Eyes: denies: eye pain, eye discharge, vision change ENT: dental pain. denies: ear pain, throat pain, hearing loss, epistaxis, marly estion Respiratory: denies: cough, shortness of breath, SOB with exertion, SOB at rest, wheezing Cardiovascular: denies: chest pain, palpitations Gastrointestinal: denies: abdominal pain, nausea, diarrhea, constipation, hemat emesis, melena, hematochezia Genitourinary: denies: urgency, dysuria, frequency, hematuria, discharge Skin: rash, pruritus Neurological: denies: headache, weakness, paresthesias, confusion, abnormal gait, vertigo Psychiatric: denies: anxiety, depression, auditory hallucinations, visual hallucinations, homicidal thoughts, suicidal thoughts Hematological/Lymphatic: denies: easy bleeding, easy bruising, swollen glands ED Past Medical Hx - Past Medical History Previous Medical History?: No - Surgical History Past Surgical History?: Yes Hx Appendectomy: Yes Additional Surgical History: x 4 - Social History Smoking Status: Never Smoker Substance Use Type: None - Medications Home Medications: Home Medications Medication Instructions Recorded Confirmed Last Taken Type Menthol/Camphor [Maria Stein [place] 1 applicatio TP BID #8 oint...g. 01/14/20 Unknown Rx Ointment] methOCARBAMOL [Robaxin TAB] 500 mg PO BID PRN #14 tab 01/14/20 Unknown Rx Menthol/Camphor [Maria Stein [place] 1 applicatio TP BID #8 oint...g. 02/17/20 Unknown Rx Ointment] methOCARBAMOL [Robaxin TAB] 500 mg PO BID PRN #14 tab 02/17/20 Unknown Rx methOCARBAMOL [Robaxin TAB] 1,000 mg PO Q8H PRN #20 tablet 03/12/20 Unknown Rx Albuterol Mdi (or & Nicu Only) 1 puff IH Q4-6H PRN #1 inha 07/31/20 Unknown Rx [ProAir HFA Inhaler] Benzonatate [Tessalon Perles] 100 mg PO Q8HR #20 capsule 07/31/20 Unknown Rx Acetaminophen/Codeine [Tylenol 1 tab PO Q8H PRN #10 tab 03/30/21 Unknown Rx /Codeine # 3 tab] Hydrocortisone 1% [Hydrocortisone 1 applicatio TP TID #30 gram 03/30/21 Unknown Rx 1% CREAM] Ibuprofen [Motrin] 600 mg PO Q8H PRN #30 tablet 03/30/21 Unknown Rx ED Physical Exam - General Limitations: No Limitations General appearance: alert, in no apparent distress - Head Head exam: Present: atraumatic, normocephalic, normal inspection - Eye Eye exam: Present: normal appearance, PERRL, EOMI Pupils: Present: normal accommodation - ENT ENT exam: Present: normal exam, mucous membranes moist - Expanded ENT Exam Expanded Mouth exam: Present: normal external inspection. Absent: drooling, trismus, muffled voice Teeth exam: Present: dental caries (Diffuse) 1 - Dental Tenderness, Other (Associated dental abscess with mild swelling to the right upper cheek. No facial cellulitis.) - Neck Neck exam: Present: normal inspection, full ROM. Absent: meningismus - Respiratory Respiratory exam: Present: normal lung sounds bilaterally. Absent: respiratory distress, wheezes, rales, rhonchi - Cardiovascular Cardiovascular Exam: Present: regular rate, normal rhythm, normal heart sounds - Neurological Exam Neurological exam: Present: alert, oriented X3, CN II-XII intact, normal gait - Psychiatric Psychiatric exam: Present: normal affect, normal mood - Skin Skin exam: Present: rash (Eczematous rash noted to bilateral upper extremity. No apparent signs of secondary bacterial infection.) ED Course Vital Signs 03/30/21 17:05 Temperature 97.7 F Pulse Rate 88 Respiratory 18 Rate Blood Pressure 112/74 [Right] O2 Sat by Pulse 99 Oximetry Critical care attestation.: If time is entered above; I have spent that time in minutes in the direct care of this critically ill patient, excluding procedure time. ED Disposition Clinical Impression: Dental abscess, Eczema Disposition: 01 HOME / SELF CARE / HOMELESS Is pt being admited?: No Does the pt Need Aspirin: No Condition: Stable Instructions: Eczema, Dental Abscess Additional Instructions: I recommend that you take the clindamycin which is the antibiotics as prescribed to completion. Take the Tylenol threes and ibuprofen as prescribed to help with any pain. Recommend warm salt water rinses or warm compress to your face to help. Use the hydrocortisone cream and take the Claritin or Zyrtec and Benadryl to help with your eczema and itching. Recommend that you follow-up with your dentist as well as your primary care doctor. Return to the ER if anything worsens. Prescriptions: Hydrocortisone 1% [Hydrocortisone 1% CREAM] 1 applicatio TP TID #30 gram Ibuprofen [Motrin] 600 mg PO Q8H PRN #30 tablet PRN Reason: Pain Acetaminophen/Codeine [Tylenol /Codeine # 3 tab] 1 tab PO Q8H PRN #10 tab PRN Reason: Pain , Severe (7-10) Referrals: [facility] [Provider Group] - 3-5 Days Forms: Work/School Release Form(ED) Time of Disposition: 20:31
== END 2021-03-30 21:23 | disposition home or self-care (01) ==
LOC: ED 17:01
DX: K04.7 Periapical abscess without sinus (principal); L30.9 Dermatitis, unspecified
CPT/HCPCS: 99282